=== PATIENT | female | born 1965 | race Hispanic/Latino ===

== ENCOUNTER → 2017-10-01 | Outpatient (CLI) | payer OTHER ==
[~2017-10-01] MED LIST: CEPH-578 PO; HYDR-309 PO; NAPR-1023 PO
== END | disposition home or self-care (01) ==
LOC: EDUNIT# 11:00 → RAH 11:28
PROVIDERS: ATTEND Nurse Practitioner Family
DX: M75.101 Unspecified rotator cuff tear or rupture of right shoulder, not specified as traumatic (principal)
CPT/HCPCS: 73221

== ENCOUNTER 2017-11-29 09:44 | Day surgery (SDC) | payer OTHER ==
[2017-11-28 16:06] LABS: BASOPHILS % (AUTO) 1.1 % (0.0-5.0); EOSINOPHILS % (AUTO) 2.1 % (0.0-8.0); HEMATOCRIT 43.4 % (36-48); LYMPHOCYTES % (AUTO) 36.9 % (21.0-51.0); MEAN CORPUSCULAR HEMOGLOBIN 32.4 pg (27.0-33.0); MEAN CORPUSCULAR HGB CONC 35.1 g/dL (32.0-36.0); MEAN CORPUSCULAR VOLUME 92.2 fL (79-99); MONOCYTES % (AUTO) 7.6 % (3.0-13.0); NEUTROPHILS % (AUTO) 52.3 % (40.0-77.0); NUCLEATED RED BLOOD CELLS 0.1 % (0.0-0.19); PLATELET COUNT (AUTO) 204 K/uL (130-400); RED CELL DISTRIBUTION WIDTH 12.4 % (11.0-15.5); WHITE BLOOD COUNT (AUTO) 9.5 K/uL (4.8-10.8)
[2017-11-28 16:12] VITALS: BP 133/72
[2017-11-28 16:14] LABS: CREATININE 0.8 mg/dL (0.5-1.5)
[~2017-11-29] VITALS: Ht 163.8 cm; Wt 92.3 kg
[2017-11-29] VITALS (15 sets, daily range): BP systolic 81–120; BP diastolic 40–74
[2017-11-29] MEDS ORDERED: LACTATED RINGERS 1000ML 1,000 ML IV ONE (10:31)
[2017-11-29] MEDS ORDERED: EPINEPHRINE 1 MG/ML 30ML VIAL IJ ONE (10:59)
[2017-11-29] MEDS: CEFAZOLIN SODIUM 1 GM VIAL IVP SCH ×3 (11:00→13:25)
[2017-11-29] MEDS ORDERED: DEXAMETHASONE SOD PHOSPHATE 10MG/ML 1ML VIAL ONE ×2 (12:35→15:17)
[2017-11-29] MEDS ORDERED: PROPOFOL 10 MG/ML 20ML VIAL IV ONE (12:35)
[2017-11-29] MEDS ORDERED: LIDOCAINE PF 2% 5ML ABBOJECT ONE (12:35)
[2017-11-29] MEDS ORDERED: ONDANSETRON HCL 4 MG/2 ML VIAL ONE (12:35)
[2017-11-29] MEDS ORDERED: GLYCOPYRROLATE 0.2 MG/ML 5 ML VIAL ONE ×2 (12:35→15:17)
[2017-11-29] MEDS ORDERED: MIDAZOLAM HCL 1 MG/ML 2ML VIAL ONE (12:36)
[2017-11-29] MEDS ORDERED: FENTANYL CITRATE PF 50 MCG/1 ML 2ML VIAL ONE ×2 (12:36→13:01)
[2017-11-29] MEDS ORDERED: KETOROLAC TROMETHAMINE 30MG/ML ONE (13:38)
[2017-11-29] MEDS ORDERED: NEOSTIGMINE METHYLSULFATE 1MG/ML IV ONE (15:17)
[2017-11-29] MEDS ORDERED: ONDANSETRON HCL MDV 20ML 2 MG/ML VIAL ONE ×2 (15:17)
[2017-11-29] MEDS ORDERED: CEPH-578 PO (15:38)
[2017-11-29] MEDS ORDERED: HYDR-309 PO (15:38)
[2017-11-29] MEDS ORDERED: NAPR-1023 PO (15:38)
[2017-11-29] MEDS ORDERED: EPHEDRINE SULFATE 50 MG/ML AMPULE ONE (16:31)
== END 2017-11-29 17:57 | disposition home or self-care (01) ==
LOC: DAH 09:44
PROVIDERS: ATTEND Orthopaedic Surgery
DX: M75.102 Unspecified rotator cuff tear or rupture of left shoulder, not specified as traumatic (principal); M75.42 Impingement syndrome of left shoulder; M19.012 Primary osteoarthritis, left shoulder; Z98.49 Cataract extraction status, unspecified eye; M06.9 Rheumatoid arthritis, unspecified; Z68.35 Body mass index [BMI] 35.0-35.9, adult; Z98.890 Other specified postprocedural states; Z82.49 Family history of ischemic heart disease and other diseases of the circulatory system; Z83.3 Family history of diabetes mellitus; Z79.899 Other long term (current) drug therapy; G89.29 Other chronic pain; F41.9 Anxiety disorder, unspecified
CPT/HCPCS: 29824; 29826; 29827; 36415; 80048; 85025; A4218; A4565; A4649 ×3; A4930; A6204; A6223; J0171; J0690; J1100 ×2; J1885; J2001; J2250; J2405; J2704; J2710; J3010 ×2; J3490 ×3; J7120 ×2